=== PATIENT | female | born 1965 | race African-American/Black ===

== ENCOUNTER 2017-08-26 06:39 | Observation (INO) | payer OTHER ==
[~2017-08-26] VITALS: Ht 165.1 cm; Wt 113.4 kg
[~2017-08-26 06:39] MED LIST: CALC1TAB12 PO; CHOL500022 PO; CLON2TAB PO; FERR325T20 PO; HYDR-3516 PO; LEVO100T5 PO; METF500T PO
[2017-08-26] MEDS ORDERED: ARTIFICIAL TEARS OPTH OINT 3.5 APPLIC/3.5 GM TUBO ONE (07:21)
[2017-08-26] MEDS ORDERED: ACETAMINOPHEN 1000 MG/100 ML 100 ML IV ONE (07:21)
[2017-08-26] MEDS ORDERED: GENTAMICIN SULFATE 80 MG/2 ML VIAL ONE (07:22)
[2017-08-26] MEDS ORDERED: THROMBIN (TOPICAL) 5,000 UNIT VIAL ONE (07:22)
[2017-08-26] MEDS ORDERED: PROPOFOL 500 MG/50 ML INJ 150 ML ONE (07:22)
[2017-08-26] MEDS ORDERED: GELFOAM SIZE 100 ONE (07:22)
[2017-08-26] MEDS ORDERED: POVIDONE IODINE 5% (ANTISEPSIS KIT) 4 APPLICATIONS EACH NARE PRN (07:30)
[2017-08-26] MEDS ORDERED: METOPROLOL TARTRATE 25 MG TAB PO PRN (07:30)
[2017-08-26] MEDS ORDERED: CHLORHEXIDINE GLUCONATE 2 % 1 PACK (2 CLOTHS) TOPICAL PRN (07:30)
[2017-08-26] MEDS ORDERED: VANCOMYCIN 1 GM/200 ML PREMIX ON-CALL IV SCH (07:30)
[2017-08-26] MEDS ORDERED: SODIUM CHLORID 0.9% 500 ML IV PRN (07:30)
[2017-08-26] MEDS ORDERED: LACTATED RINGER'S 1000 ML IV PRN (07:30)
[2017-08-26] MEDS ORDERED: HYDR25TA5 PO (07:33)
[2017-08-26] MEDS ORDERED: ceFAZolin 2 GM PREMIX 50 ML ONE (08:37)
[2017-08-26] MEDS ORDERED: MIDAZOLAM HCL 2 MG/2 ML VIAL ONE (11:11)
[2017-08-26] MEDS ORDERED: METOPROLOL TARTRATE 5 MG/5 ML VIAL IV ONE (12:00)
[2017-08-26] MEDS ORDERED: ROCURONIUM INJ 50 MG/5 ML SYRINGE IV PUSH ONE (12:00)
[2017-08-26] MEDS ORDERED: LIDOCAINE HCL 1% PF 5 ML SYRINGE OTHER ONE (12:00)
[2017-08-26] MEDS ORDERED: PROPOFOL 200 MG/20 ML AMP IV ONE (12:00)
[2017-08-26] MEDS ORDERED: DEXAMETHASONE SOD PHOS 4 MG/ML VIAL IV ONE (12:00)
[2017-08-26] MEDS ORDERED: LABETALOL HCL 100 MG/20 ML VIAL IV ONE (12:00)
[2017-08-26] MEDS ORDERED: GLYCOPYRROLATE 1 MG/5 ML SYRINGE IV PUSH ONE (12:00)
[2017-08-26] MEDS ORDERED: NEOSTIGMINE 5 MG/5 ML SYRINGE IV PUSH ONE (12:00)
[2017-08-26] MEDS ORDERED: ONDANSETRON HCL 4 MG/2 ML VIAL IV ONE (12:00)
[2017-08-26] MEDS ORDERED: LACTATED RINGER'S 1000 ML INJ 1,000 ML IV ONE (12:00)
[2017-08-26] MEDS ORDERED: *morphine SULFATE 4 MG/ML PERIprocedure ONLY ONE (14:13)
[2017-08-26] MEDS ORDERED: GLUCAGON 1 MG/ML VIAL OTHER PRN ×2 (14:15)
[2017-08-26] MEDS ORDERED: ACETAMINOPHEN/HYDROcodone 325 MG/10 MG TAB PO PRN (14:15)
[2017-08-26] MEDS ORDERED: MAGNESIUM HYDROXIDE SUSP 30 ML CUP PO PRN (14:15)
[2017-08-26] MEDS ORDERED: DO NOT ADM ANY ANTICOAGULANT DRUGS PRN (14:15)
[2017-08-26] MEDS ORDERED: ACETAMINOPHEN 325 MG TAB PO PRN (14:15)
[2017-08-26] MEDS ORDERED: DEXTROSE 50% IN WATER 50 ML VIAL(D50) IV PUSH PRN (14:15)
[2017-08-26] MEDS ORDERED: MENTHOL LOZENGE BUCCAL PRN (14:15)
[2017-08-26] MEDS ORDERED: MORPHINE SULFATE 4 MG/ML INJ IV PUSH PRN ×2 (14:15)
[2017-08-26] MEDS ORDERED: ACETAMINOPHEN/HYDROcodone 325 MG/5 MG TAB PO PRN (14:15)
[2017-08-26] MEDS ORDERED: ONDANSETRON HCL 4 MG/2 ML VIAL IV PRN (14:15)
[2017-08-26] MEDS ORDERED: cloNIDine HCL 0.1 MG TAB PO/NG PRN (14:15)
[2017-08-26] MEDS ORDERED: RESP: ALBUTEROL 2.5 MG/3 ML NEB (PRN) INH (14:15)
[2017-08-26] MEDS ORDERED: BISACODYL 10 MG SUPP RECTAL PRN (14:15)
--- NOTE | 2017-08-26 14:35 | RADRPT ---
EXAM DATE/TIME: 08/26/2017 10:02 [place] COMPARISON: No previous studies available for comparison. INDICATIONS : C5 corpectomy and fusion C4 to C6 with screws and plate. MEDICAL HISTORY : None. SURGICAL HISTORY : None. ENCOUNTER: Initial ACUITY: 1 day PAIN SCORE: Non-responsive. LOCATION: Cervical spine. FINDINGS: Status post anterior cervical fusion with corpectomy from C4-C6. Alignment anatomic. CONCLUSION: Anatomic alignment. Antoni Fan MD FACR on August 26, 2017 at 14:32 Board Certified Radiologist. This report was verified electronically.
[2017-08-26] MEDS: SODIUM CHLOR 0.9% 1000 ML INJ 1,000 ML IV SCH ×2 (14:41→15:00)
[2017-08-26] MEDS: DEXAMETHASONE SOD PHOS 4 MG/ML VIAL IV PUSH SCH ×2 (15:49→21:40)
--- NOTE | 2017-08-26 15:53 | PD.OP ---
Operative Report Date of Surgery: August 26, 2017 Preoperative Diagnosis: Osification of the posterior longitudinal ligament Postoperative Diagnosis: Osification of the posterior longitudinal ligament Procedure: C5 corpectomy, C4-C6 interbody arthodhesis using Titanium mesh cage filled with autologous bone graft, instrumental fixation using Simplicity plate and screws. Anesthesia: general endotracheal Surgeon: Byron Ayala Cabinet Mounter(s): Sharon Hernandez Operation and Findings: INDICATIONS FOR THE PROCEDURE Ms Cerrato is a 52 year-old female who presented with intractable neck pain and clinical evidence of cervical myelopathy. She had osification of the posterior longitudinal ligament. She failed maximal nonsurgical management A proper surgical decompression could not be achieved by performing an anterior cervical discectomy and a corpectomy and arthrodhesis were indicated. The [id number] details of the procedure, indications, alternatives, risks and potential complications were fully discussed with the patient. The patient fully understood. All The questions were answered. No guarantees were given. The patient voiced requesting the procedure and provided informed consents. The patient was offered the alternative of delaying the procedure and continuing with nonsurgical management. DETAILS OF THE SURGICAL PROCEDURE After the induction of general anesthesia, endotracheal intubation was performed. Electrodes were placed for electrophysiological monitoring of the somatosensorial evoked potentials, EMG, laryngeal nerve EMG, and motor evoked potentials prior to the intubation and kept thorough the procedure. A Bernal catheter, bilateral NICOLASA hose, and sequential compression devices were placed and kept throughout the procedure. The patient was positioned supine on a Michael table with the head over a gel doughnut. All pressure points were carefully padded with eggcrate mattress. The eyes were tapped shut after ointment was applied by the anesthesiologist to prevent corneal abrasion. A Jermain hugger was placed over the exposed lower body to maintain control of the core body temperature. The electrophysiological team placed the needles and electrodes in their proper location and baseline SSEP's and motor evoked potentials were registered. The anterior cervical region was prepped and draped in the usual sterile fashion. A localizing x-ray was performed with a C- arm. Surgical exposure A skin incision was made along the middle cervical crease with a #10 blade. The dissection was carried out through the platysma exposing the sternocleidomastoid. The cervical spine was approached following the fascial layers of the neck just medial to the anterior border of the sternocleidomastoid and carotid sheath by a combination of sharp and dull dissection. The omohyoid muscle was identified and carefully dissected laterally and the deep cervical fascia was carefully opened. The longus colli muscles were retracted to each side of the midline. A cervical marker was placed at the disk space and a cross-table lateral x-ray performed with a C- arm. An anterior osteophytic spur was carefully removed, and a self-retaining retractor was placed underneath the longus colli muscle. Corpectomy At this point in the procedure the operating microscope was draped in the usual sterile fashion and brought to the field. The rest of the surgical procedure was performed using microdissection technique with the exception of the closure. A micro discectomy was initially performed at C4-5, and C5-C6, the superior and inferior disks adjacent to the corpectomy. The corpectomy was then drilled with the TPS drill and the bones obtained were saved for use during the fusion. The mass affect on the anterior surface of the dural sac was carefully relieved by drilling with a TPS drill under high magnification. A complete resection of the vertebral body was achieved. The posterior longitudinal ligament was elevated with an angled curet and removed with a thin footplate 2 mm Kerrison. A bilateral foraminotomy was performed with a Kerrison. The epidural space was assessed with a nerve hook. Given the extension behind C6 vertebral body, it was necessary to dripp them upper part of C6. Interbody arthrodhesis The incision was then irrigated with a large amount of antibiotic solution and the endplates were evenly decorticated with a TPS drill in preparation for the interbody arthrodesis. The interbody arthrodesis was then preformed by carefully impacting a Titanium Mesh cage filled with autologous bone graft to the corpectomy space, and excellent position of the cage was achieved which was confirmed anatomically by fealing the epidural space with a nerve root and radiologically with the isocentric C-arm. Instrumental fixation Then, a Simplicity plate was brought to the field and secured with 14 mm screws. A reasonable purchase was achieved with all screws and the position of the cage, plate and screws, and alignment of the spine was assessed radiologically with the C-arm. Closure The incision was irrigated with antibiotic solution. Hemostasis was achieved with a bipolar. The screws were locked to prevent backing out. A 7 mm Michael- Bell drain was left in the prevertebral space and externalized through a separate stab incision. The incision was then closed in layers. 3-0 Vicryl with interrupted sutures was used to close the platysma and subcutaneous tissue. The skin was closed with 4-0 running subcuticular Vicryl and Dermabond was applied to the skin. The drain was secured with a 3-0 nylon. At the end of the procedure the sponge, needle and instrument counts were all correct. The estimated blood loss was 150 cc. No blood transfusion was given. No intraoperative complications occurred. The patient received prophylactic antibiotics. The patient was then extubated and transferred to the recovery room in stable condition. Byron Ayala MD August 26, 2017 15:52
[2017-08-26 16:00] VITALS: BP 139/77; PULSE 97; RESP 15; TEMP 98.6; O2SAT 94
[2017-08-26] MEDS: INSULIN ASPART SUPPLEMENTAL SCALE SQ SCH ×2 (17:00→21:41)
[2017-08-26] MEDS: metFORMIN HCL 500 MG TAB PO SCH (18:55)
[2017-08-26] MEDS: ceFAZolin 2 GM PREMIX 50 ML IV SCH (18:58)
[2017-08-26 20:00] VITALS: BP 154/70; PULSE 108; RESP 18; TEMP 98.1; O2SAT 95
[2017-08-26] MEDS ORDERED: CHLORHEXIDINE GLUCONATE 4% SOLN 120 ML BTL TOP SCH (21:00)
[2017-08-26] MEDS: DOCUSATE SODIUM 100 MG CAP PO SCH (21:40)
[2017-08-26] MEDS: CYCLOBENZAPRINE HCL 10 MG TAB PO PRN (22:52)
[2017-08-26] MEDS: ACETAMINOPHEN/HYDROcodone 325 MG/10 MG TAB PO PRN (22:53)
[2017-08-27 00:01] VITALS: BP 124/69; PULSE 101; RESP 18; TEMP 98.2; O2SAT 94
[2017-08-27] MEDS: SODIUM CHLOR 0.9% 1000 ML INJ 1,000 ML IV SCH ×3 (01:00→10:37)
[2017-08-27] MEDS: ceFAZolin 2 GM PREMIX 50 ML IV SCH ×2 (01:59→10:37)
[2017-08-27] MEDS: DEXAMETHASONE SOD PHOS 4 MG/ML VIAL IV PUSH SCH ×3 (01:59→14:26)
[2017-08-27] MEDS: ACETAMINOPHEN/HYDROcodone 325 MG/10 MG TAB PO PRN ×3 (03:16→13:14)
[2017-08-27 04:00] VITALS: BP 127/72; PULSE 104; RESP 18; TEMP 98; O2SAT 95
[2017-08-27] MEDS ORDERED: LEVOTHYROXINE SODIUM 100 MCG TAB PO SCH (06:00)
[2017-08-27 08:00] VITALS: BP 124/66; PULSE 91; RESP 18; TEMP 97.5; O2SAT 96
--- NOTE | 2017-08-27 08:22 | EKG ---
Date Performed: 08/26/2017 Time Performed: 07:15:24 PTAGE: 52 years EKG: Sinus rhythm NONSPECIFIC T-WAVE ABNORMALITY BORDERLINE ECG PREVIOUS TRACING : 09/06/2003 13.25 DOCTOR: Karen Lomax Interpretating Date/Time 08/27/2017 08:22:25
[2017-08-27] MEDS: CYCLOBENZAPRINE HCL 10 MG TAB PO PRN (08:51)
[2017-08-27] MEDS: metFORMIN HCL 500 MG TAB PO SCH (08:53)
[2017-08-27] MEDS: DOCUSATE SODIUM 100 MG CAP PO SCH (08:54)
[2017-08-27] MEDS: INSULIN ASPART SUPPLEMENTAL SCALE SQ SCH ×2 (08:56→13:15)
[2017-08-27] MEDS ORDERED: CHOLECALCIFEROL (VIT D3) 5000 UNIT CAP PO SCH (09:00)
[2017-08-27] MEDS ORDERED: PANTOPRAZOLE SOD 40 MG DELAYED RELEASE TAB PO SCH (09:00)
[2017-08-27] MEDS ORDERED: HYDROCHLOROTHIAZIDE 25 MG TAB PO SCH (09:00)
[2017-08-27] MEDS ORDERED: FERROUS SULFATE 325 MG (65 MG ELEMENTAL IRON) TAB PO SCH (09:00)
[2017-08-27] MEDS ORDERED: CALCIUM/VITAMIN D 250 MG/125 U TAB PO SCH (09:00)
[2017-08-27] MEDS ORDERED: clonazePAM 1 MG TAB PO SCH (09:00)
[2017-08-27] MEDS ORDERED: PANTOPRAZOLE SODIUM 40 MG VIAL IVP SCH (09:00)
[2017-08-27] MEDS ORDERED: HYDR-3516 PO (11:12)
[2017-08-27 12:00] VITALS: BP 135/68; PULSE 97; RESP 18; TEMP 97.7; O2SAT 97
--- NOTE | 2017-08-27 12:09 | HHI.DCPOC ---
Discharge Care Plan Diagnosis: (1) Status post cervical arthrodesis Goals to Promote Your Health * To prevent worsening of your condition and complications * To maintain your health at the optimal level Directions to Meet Your Goals Take your medications as prescribed Follow your dietary instruction Follow activity as directed Keep your appointments as scheduled Take your immunizations and boosters as scheduled If your symptoms worsen call your PCP, if no PCP go to Urgent Care Center or Emergency Room Smoking is Dangerous to Your Health. Avoid second hand smoke Call the 24-hour hour crisis hotline for domestic abuse at Alyssa Boudreaux August 27, 2017 12:09
--- NOTE | 2017-08-27 12:09 | HHI.DS ---
Discharge Summary Admission Date August 26, 2017 at 06:39 Discharge Date: August 27, 2017 Admitting Diagnosis s/p cervical arthrodesis (1) Status post cervical arthrodesis ICD Code: Z98.1 - Arthrodesis status Brief History Ms Cerrato is a 52 year-old female who presented with intractable neck pain and clinical evidence of cervical myelopathy. She had ossification of the posterior longitudinal ligament. She failed maximal nonsurgical management A proper surgical decompression could not be achieved by performing an anterior cervical discectomy and a corpectomy and arthrodesis were indicated. Imaging Last Impressions Cervical Spine X-Ray 08/26/17 0000 Signed Impressions: Service Date/Time: Saturday, August 26, 2017 10:02 - CONCLUSION: Anatomic alignment. Antoni Fan MD [facility] Hospital Course Ms. Cerrato underwent C5 corpectomy, C4-C6 interbody arthodhesis using Titanium mesh cage filled with autologous bone graft, instrumental fixation using Simplicity plate and screws on August 26, 2017 for Ossification of the posterior longitudinal ligament. Her surgery went well without complications, she was discharged home in stable conditions. Pt Condition on Discharge: Stable Discharge Disposition: Discharge Home Discharge Instructions DIET: Follow Instructions for: Heart Healthy Diet ADDITIONAL Diet Instructions: soft and advance as tolerated ACTIVITIES You can perform: Weight Bearing As [place] ADDITIONAL Activity Instructio: Avoid strenuous activities, heavy lifting over 5 lbs, overhead activities, repetitive bending, twisting, pushing, pulling or any activities which might result in stress over the spine. Avoid situation that will put at risk for falls. Use assistive device as needed for walking. Wear cervical collar at all times, may remove only with meals. Continued Medications: Calcium Carbonate-Cholecalciferol (Calcium 500 +D) 500-400 Mg-Unit Tab 1 TAB PO DAILY for Calcium Supplement, TAB 0 Refills Cholecalciferol (Vitamin D3 Maximum Strength) 5,000 Unit Cap 5000 UNITS PO DAILY for Nutritional Supplement, #30 CAP 0 Refills Clonazepam (Clonazepam) 2 Mg Tab 2 MG PO DAILY, #60 TAB 0 Refills Ferrous Sulfate (Ferosul) 325 Mg (65 Mg Iron) Tablet 1 TAB PO DAILY Hydrochlorothiazide (Hydrochlorothiazide) 25 Mg Tab 25 MG PO DAILY, #30 TAB 0 Refills Hydrocodone-Acetaminophen (Hydrocodone-Acetaminophen) 5-325 mg Tab 1 TAB PO Q6H PRN for PAIN, #62 TAB 0 Refills (This prescription has been renewed ) Levothyroxine (Levothyroxine) 100 Mcg Tab 100 MCG PO DAILY for Thyroid, #30 TAB 0 Refills Metformin (Metformin) 500 Mg Tab 500 MG PO BIDPC for Blood Sugar Management, #60 TAB 0 Refills Alyssa Boudreaux August 27, 2017 12:09
[2017-08-27 16:00] VITALS: BP 129/75; PULSE 97; RESP 18; TEMP 97.1; O2SAT 97
== END 2017-08-27 17:21 | disposition home or self-care (01) ==
LOC: HSDI 06:39 → INTOOBSV 06:39 → EDSTATUS 08:30 → N06A 15:08
PROVIDERS: ADMIT Neurological Surgery; ATTEND Neurological Surgery
DX: M48.8X2 Other specified spondylopathies, cervical region (principal); G95.9 Disease of spinal cord, unspecified; I10 Essential (primary) hypertension; J45.909 Unspecified asthma, uncomplicated; E11.9 Type 2 diabetes mellitus without complications
CPT/HCPCS: 00600; 20936; 22551; 22845; 22853; 63081; 72040; 76000; 93005; 94150; 96361; 96365; 96372; 96375; 96376; 97162; C1713; G0378; G8987; G8988; J0131; J0690; J1100; J1580; J1815; J2250; J2270; J2405; J2710; J3010; J3370; J7030; J7120; L0172